=== PATIENT | male | born 1965 | race Caucasian/White ===

== ENCOUNTER → 2020-09-28 09:39 | Outpatient (CLI) | payer OTHER, SELFPAY ==
--- NOTE | 2020-09-28 | DI.MRI.S_ITS ---
PROCEDURE: MR HEAD/BRAIN WO/W CON INDICATIONS: EPILESPY TECHNIQUE: Noncontrast axial T1 spin echo, axial T2 fast spin echo, sagittal and axial FLAIR, coronal T2 fast spin echo, axial gradient echo, axial diffusion and ADC through the brain. After the administration of contrast, axial and coronal 3D VIBE or T1 spin echo with fat saturation through the brain. COMPARISON: None. FINDINGS: Image quality: Excellent. CSF Spaces: Basal cisterns are patent. No extra-axial fluid collections. Ventricles are normal in size and shape. Brain: No midline shift. No intracranial bleeds or masses. No abnormal intracranial enhancement. Mild diffuse cerebral volume loss is present. The brainstem appears normal. Diffusion-weighted images demonstrate no acute ischemic insults. No chronic ischemic insults. Normal intravascular flow voids are present. Skull and face: Calvarial marrow is normal in signal. Orbits appear normal. Sinuses: Sinuses and mastoids appear clear. IMPRESSION: 1. No acute process. 2. No recent infarct. 3. Mild cerebral volume loss. Dictated by: Yann Carreon M.D. on 09/28/2020 at 10:46 Approved by: Yann Carreon M.D. on 09/28/2020 at 10:47
== END ==
PROVIDERS: Referring Provider Family Medicine; Visit Provider Family Medicine
DX: G40.909 Epilepsy, unspecified, not intractable, without status epilepticus (principal)
CPT/HCPCS: 70553

== ENCOUNTER → 2021-07-02 14:27 | Outpatient (CLI) | payer OTHER, SELFPAY ==
[2021-07-02 18:52] LABS: COVID19 -Nasal RAPID Negative (Negative)
== END ==
PROVIDERS: Referring Provider Physician Assistant; Visit Provider Physician Assistant
DX: Z01.812 Encounter for preprocedural laboratory examination (principal); Z20.822 Contact with and (suspected) exposure to COVID-19
CPT/HCPCS: 87635

== ENCOUNTER → 2021-07-03 15:08 | Outpatient (CLI) | payer OTHER, SELFPAY ==
--- NOTE | 2021-07-03 16:05 | PM.TREADMILL ---
Cardiac Stress Test Report Referral & Results Date Patient Seen: 07/03/21 Time Patient Seen: 16:07 Indication: Ventricular premature depolarization Rest ECG: Sinus rhythm Procedure Note: Standard Raudel protocol, 14:07, 14.7 METS Very good exercise capacity, DYLLAN -40% Normal hemodynamic response to exercise No chest pain or anginal symptoms Resting ECG normal sinus rhythm, no significant ST changes at peak exercise; no ectopy Impression: Normal exercise stress test Please note: Actual ECG tracings can be found in the PACS system.
--- NOTE | 2021-07-03 19:35 | DI.NM.S_ITS ---
DATE OF SERVICE: PROCEDURE: Exercise stress test. DATE OF STUDY: July 03, 2021 INDICATIONS: History of syncope, PVCs, and SVT. CARDIAC STRESS: The patient underwent exercise stress test under the supervision of an attending staff. The patient walked on Raudel protocol for 14 minutes and 7 seconds, achieved maximum heart rate of 166, which was 100 percent of target heart rate. Resting blood pressure 116/60 mmHg. Peak blood pressure 190/90 mmHg. The patient achieved 14.8 METs of workload and DYLLAN -40 percent. Baseline rhythm was sinus with RSR-complex in V1 to V2. During stress, no convincing ischemic changes seen. No significant arrhythmias seen. No anginal symptoms were reported. CONCLUSION: 1. Exercise stress test is negative for inducible ischemia. 2. Normal hemodynamic response. 3. Excellent exercise capacity. 4. No anginal symptoms. 5. No significant arrhythmias seen. Overall low-risk exercise stress test. Nomi Salas - [place]/rena/fred doc#: [id number]/job#: [id number] dd: 07/03/2021 16:42:00 dt: 07/03/2021 19:21:00 DICTATING /COPIES TO: Adan Forbes MD COPIES MNE: GLADYS;
== END ==
PROVIDERS: Referring Provider Internal Medicine Cardiovascular Disease; Visit Provider Internal Medicine Cardiovascular Disease
DX: I49.3 Ventricular premature depolarization (principal); R55 Syncope and collapse
CPT/HCPCS: 93017

== ENCOUNTER → 2022-01-24 07:43 | Outpatient (CLI) | payer OTHER, SELFPAY ==
--- NOTE | 2022-01-24 | DI.MRI.S_ITS ---
PROCEDURE: MR CERVICAL SPINE WO CON INDICATIONS: RADICULOPATHY TECHNIQUE: Noncontrast sagittal T1 spin echo and T2 fast spin echo, sagittal STIR, foraminal oblique sagittal T2 fast spin echo, and axial gradient echo or T2 fast spin echo through the cervical spine. COMPARISON: None. FINDINGS: Image quality: Excellent. Alignment and Curvature: There is normal bony alignment. Bone Marrow: Marrow demonstrates normal overall signal. There is increased T1 and T2 signal at C5 most suggestive of hemangioma. Spinal Cord: Visualized spinal cord has normal size and signal. No cerebellar tonsillar herniation. Paraspinous Soft Tissues: No paravertebral masses. Prevertebral soft tissues are normal in thickness. Discs: Minimal scattered disc desiccation is present. C2-C3: No disc bulge, spinal stenosis or foraminal narrowing. C3-C4: No disc bulge or spinal stenosis. Eevp-vy-uxufzhao left foraminal narrowing with uncovertebral hypertrophy. C4-C5: Minimal disc bulge with slight effacement of the thecal sac. Mild to moderate, left greater than right foraminal narrowing with uncovertebral hypertrophy. C5-C6: Minimal disc bulge without spinal stenosis. Moderate bilateral foraminal narrowing with uncovertebral hypertrophy. C6-C7: Minimal disc bulge without spinal stenosis. Vosa-xd-[id number] bilateral foraminal narrowing with uncovertebral hypertrophy. C7-T1: No disc bulge or spinal stenosis. Lagm-dh-kngyjdkt right foraminal narrowing with uncovertebral hypertrophy. IMPRESSION: Scattered minimal disc bulges. Slight effacement of the thecal sac at C4-5. Otherwise, no gross spinal stenosis. Multilevel foraminal narrowing overall [id number] most notable at C5-6 with uncovertebral arthropathy. Dictated by: Shira Rojas M.D. on 01/24/2022 at 10:20 Approved by: Shira Rojas M.D. on 01/24/2022 at 10:24
== END ==
PROVIDERS: PCP Family Medicine; Referring Provider Family Medicine; Visit Provider Family Medicine
DX: M47.22 Other spondylosis with radiculopathy, cervical region (principal); M48.02 Spinal stenosis, cervical region
CPT/HCPCS: 72141